=== PATIENT | male | born 1940 | race Caucasian/White ===

== ENCOUNTER 2018-12-10 09:27 | Inpatient (IN) | payer OTHER ==
[~2018-12-10] VITALS: Ht 170.2 cm; Wt 70.8 kg
[2018-12-10 09:28] VITALS: BP 96/58
[2018-12-10 09:51] LABS: HEMATOCRIT 28.6 % (42.0-52.0); HEMOGLOBIN 9.2 gm/dL (14.0-18.0); MCH 32.2 pg (26.0-34.0); MCHC 32.2 g/dL (28.0-37.0); MCV 100.1 fL (80.0-100.0); PLATELET COUNT 157 thou/uL (150-400); RBC 2.86 mil/uL (4.50-6.00); RDW 17.1 % (10.5-14.5); WBC 19.3 thou/uL (4.0-11.0)
[2018-12-10] MEDS ORDERED: ASPIR 8181 MG PO (09:54)
[2018-12-10] MEDS ORDERED: KEPPRA750 MG PO (09:55)
[2018-12-10] MEDS ORDERED: BUSPIRONE HCL10 MG PO (09:55)
[2018-12-10] MEDS ORDERED: TYLENOL325 MG PO (09:55)
[2018-12-10] MEDS ORDERED: MIRALAX17 GM PO (09:56)
[2018-12-10] MEDS ORDERED: OXYCODONE HCL 55 MG PO ×2 (09:56→13:17)
[2018-12-10] MEDS ORDERED: PRILOSEC 20 MG20 MG PO (09:56)
[2018-12-10] MEDS ORDERED: RISPERIDONE 00.25 M1 PO (09:57)
[2018-12-10] MEDS ORDERED: SENNA8.6 MG PO (09:57)
[2018-12-10] MEDS ORDERED: BACTRIM DS TAB1 EACH PO (09:58)
[2018-12-10] MEDS ORDERED: MAGOX 400400 MG PO (09:59)
[2018-12-10] MEDS ORDERED: DEPAKOTE ER250 MG PO (09:59)
[2018-12-10] MEDS ORDERED: DEXAMETHASONE0.5 MG PO (10:00)
[2018-12-10 10:04] LABS: CALCIUM 8.1 mg/dL (8.5-10.1); CREATININE 1.3 mg/dL (0.7-1.3); POTASSIUM 4.3 mmol/L (3.5-5.1)
[2018-12-10 10:14] LABS: ALBUMIN 2.7 g/dL (3.4-5.0); MAGNESIUM 2.1 mg/dL (1.8-2.4); TOTAL BILIRUBIN 0.8 mg/dL (<0.1-1.0); TOTAL PROTEIN 5.5 g/dL (6.4-8.2); TROPONIN-I 0.31 ng/mL (<0.06)
[2018-12-10 10:38] LABS: ABSOLUTE NEUTROPHILS 14.7 thou/uL (1.4-8.2)
[2018-12-10 10:39] LABS: METAMYELOCYTES 4 %; MYELOCYTES 32 %; PLATELET ESTIMATE NORMAL
[2018-12-10 10:40] LABS: ANISOCYTOSIS 1+; MACROCYTES 1+; POLYCHROMASIA 1+
[2018-12-10 12:10] LABS: URINE BILIRUBIN NEGATIVE (Negative); URINE BLOOD 2+ (Negative); URINE CLARITY CLEAR; URINE COLOR YELLOW; URINE GLUCOSE-RANDOM* TRACE (Negative); URINE KETONES NEGATIVE (Negative); URINE LEUKOCYTES-REFLEX NEGATIVE (Negative); URINE NITRITE-REFLEX NEGATIVE (Negative); URINE PROTEIN (DIPSTICK) 1+ (Negative); URINE SPECIFIC GRAVITY 1.015 (1.005-1.035); URINE UROBILINOGEN 0.2 E.U./dl (0.2-1.0)
[2018-12-10 12:23] LABS: CASTS None Seen /LPF (None Seen); HYALINE CASTS 0-3 Few /LPF (None Seen); SQUAMOUS 0-3 Few /LPF (0-3)
[2018-12-10 12:24] LABS: BACTERIA-REFLEX 1-9 Few /HPF (None Seen); CRYSTALS None Seen /LPF (None Seen); URINE RBC 3-10 Few /HPF (0-2); URINE WBC-REFLEX 0-5 Rare /HPF (0-5)
[2018-12-10 14:47] VITALS: BP 95/51
[2018-12-10 15:06] VITALS: BP 108/63
[2018-12-10 16:30] VITALS: BP 92/54
--- NOTE | 2018-12-10 16:58 | EKG ---
[address] [address] ELECTROCARDIOGRAM REPORT Name: IRVIN LIZ Room #: 357-P ADM IN M.R.#: [id number] ������������������ Admission: 12/10/18 ������������������ Attend Phys: Tommy Del Castillo MD Discharge: ������������������ Date of : 44 Report #: [id number] ����������������������������������������������������������������� [id number] THIS REPORT FOR: //name// [facility] ED Test Date: 2018-12-10 Test Time: 09:44:56 Pat Name: IRVIN LIZ Department: Room: 357 Gender: M Foreign Correspondent: KARLA : 1940 Requested By: Nathan Drummond Order Number: [id number] MD: Marty Pathak Measurements Intervals [place] Rate: 93 P: DE: QRS: 54 QRSD: 82 T: 243 QT: 387 QTc: 482 Interpretive Statements Atrial fibrillation Abnormal R-wave progression, early transition Borderline repolarization abnormality Borderline prolonged QT interval No previous ECG available for comparison Electronically Signed On 12-10-2018 16:58:28 CDT by Marty Pathak [email or web address] ��������������������������������������������� <ELECTRONICALLY SIGNED> ���������������������������������������� By: Marty Pathak MD, [facility] ��������������������������������������������� 12/10/18 1658 3 Marty Pathak MD, [facility] /EPI
--- NOTE | 2018-12-10 17:48 | NUR ---
PT ADMITED FROM ER. ADMISSION HX AND ASSESSMENT COMPLETED. VSS. DENIED HAVING PAIN OR DISCOMFORT. EVANS CATHETER AND COLOSTOMY BAG PATENT. PT ORIENTED TO THE ROOM AND THE CALL SYSTEM. ON SEIZURE PRECAUTIONS. WILL CONTINUE TO MONITOR.
[2018-12-10 18:10] LABS: URINE BILIRUBIN NEGATIVE (Negative); URINE BLOOD 2+ (Negative); URINE CLARITY CLEAR; URINE COLOR YELLOW; URINE GLUCOSE-RANDOM* NEGATIVE (Negative); URINE KETONES NEGATIVE (Negative); URINE NITRITE-REFLEX NEGATIVE (Negative); URINE PROTEIN (DIPSTICK) NEGATIVE (Negative); URINE SPECIFIC GRAVITY <= 1.005 (1.005-1.035); URINE UROBILINOGEN 0.2 E.U./dl (0.2-1.0)
[2018-12-10 18:12] LABS: URINE LEUKOCYTES-REFLEX 1+ (Negative)
[2018-12-10 18:28] LABS: SQUAMOUS 0-3 Few /LPF (0-3)
[2018-12-10 18:29] LABS: CASTS None Seen /LPF (None Seen)
[2018-12-10 18:30] LABS: BACTERIA-REFLEX 1-9 Few /HPF (None Seen); CRYSTALS None Seen /LPF (None Seen); URINE WBC-REFLEX 0-5 Rare /HPF (0-5)
[2018-12-10 19:15] VITALS: BP 101/47
[2018-12-11] VITALS: BP 106/59
[2018-12-11 00:07] LABS: GLYCOHEMOGLOBIN (HGB A1C) 5.4 % (4.8-5.6)
--- NOTE | 2018-12-11 03:28 | NUR ---
SLEPT MOST OF SHIFT. UPSET WHEN AWAKENED FOR CARES. REPOSITIONED EVERY 2-3 HOURS FOR COMFORT AND SKIN CARE. MAINTAIN SAFE ENVIRONMENT. PRORGRESSING TOWARDS GOALS FOR TRANSFER TO POSSIBLY TODAY PER PATIENTS CARE GIVERS REQUEST. CONTINUE TO ASSES. NO SEIZURES THIS SHIFT.
[2018-12-11 05:04] VITALS: BP 96/59
[2018-12-11 06:22] LABS: CHOLESTEROL 142 mg/dL (<200); HDL CHOLESTEROL 66 mg/dL (>40); LDL CHOLESTEROL 64 mg/dL (<100); TC:HDL 2.2 Ratio (Not establshd); TRIGLYCERIDE 64 mg/dL (<150); VLDL 13 mg/dL (<40)
[2018-12-11 06:23] LABS: SERUM ASSESSMENT Clear
[2018-12-11 07:52] VITALS: BP 105/63
[2018-12-11 08:23] LABS: HEMATOCRIT 21.9 % (42.0-52.0); HEMOGLOBIN 7.4 gm/dL (14.0-18.0); MCH 32.7 pg (26.0-34.0); MCHC 33.8 g/dL (28.0-37.0); MCV 96.7 fL (80.0-100.0); PLATELET COUNT 125 thou/uL (150-400); RBC 2.27 mil/uL (4.50-6.00); RDW 17.4 % (10.5-14.5)
[2018-12-11 08:28] LABS: CALCIUM 7.9 mg/dL (8.5-10.1); CREATININE 0.9 mg/dL (0.7-1.3); POTASSIUM 4.5 mmol/L (3.5-5.1)
--- NOTE | 2018-12-11 08:54 | EKG ---
[address] [place] [address] ELECTROCARDIOGRAM REPORT Name: IRVIN LIZ Room #: 357-P ADM IN M.R.#: [id number] ������������������ Admission: 12/10/18 ������������������ Attend Phys: Tommy Del Castillo MD Discharge: ������������������ Date of : 44 Report #: [id number] ����������������������������������������������������������������� [id number] THIS REPORT FOR: //name// [facility] Test Date: 2018-12-11 Test Time: 07:42:32 Pat Name: IRVIN LIZ Department: Room: 357 P Gender: M Drapery Maker: JENNIFER : 1940 Requested By: Radha Donnelly Order Number: [id number] MD: Marty Pathak Measurements Intervals [place] Rate: 77 P: ID: QRS: 53 QRSD: 83 T: QT: 446 QTc: 505 Interpretive Statements Atrial flutter with predominant 4:1 AV block Abnormal R-wave progression, early transition Nonspecific T abnormalities Prolonged QT interval Compared to ECG 12/10/2018 09:44:56 no significant change was found Electronically Signed On 12-11-2018 8:54:10 CDT by Marty Pathak [email or web address] ��������������������������������������������� <ELECTRONICALLY SIGNED> ���������������������������������������� By: Marty Pathak MD, [facility] ��������������������������������������������� 12/11/18 0854 0742 0742 Marty Pathak MD, [facility] /EPI
--- NOTE | 2018-12-11 09:40 | 2DMMODE ---
[facility] [address] [place] [address] 2 D/M-MODE ECHOCARDIOGRAM Name: IRVIN LIZ Room #: 357-P ADM IN M.R.#: [id number] ������������� Admission: 12/10/18 ������������� Attend Phys: Tommy Del Castillo, Discharge: ��� ������������� ��� Date of : 44 Date of Service: 12/11/18 0939 �� Report #: [id number] �������� ��������������������������������������������[id number] THIS REPORT FOR: //name// APPROVED REPORT Study performed: 12/11/2018 08:36:12 EXAM: Comprehensive 2D, Doppler, and color-flow Echocardiogram Patient Location: Bedside Room #: 357 Status: routine BSA: 1.82 HR: 78 bpm BP: 105/63 mmHg Rhythm: Atrial Fibrillation Other Information Study Quality: Fair/not all measurements taken. Technically limited study due to poor patient cooperation and positioning. Indications Atrial Fibrillation Elevated troponin. Hx: DM. 2D Dimensions IVSd: 11.59 (7-11mm) LVOT Diam: 18.90 (18-24mm) LVDd: 34.05 mm PWd: 11.10 (7-11mm) LVDs: 25.63 (25-40mm) Aortic Root: 36.55 mm Aortic Valve AoV Peak Qasim.: 1.49 m/s AO Peak Gr.: 8.85 mmHg LVOT Max P.19 mmHg LVOT Max V: 1.02 m/s ELVIS Vmax: 1.93 cm2 Mitral Valve MV Decel. Time: 101.22 ms MV E Max Qasim.: 1.00 m/s Pulmonary Valve PV Peak Qasim.: 0.90 m/s PV Peak Gr.: 3.21 mmHg [facility] [address] [address] 2 D/M-MODE ECHOCARDIOGRAM Name: IRVIN LIZ Room #: 357-P ADM IN M.R.#: [id number] ������������� Admission: 12/10/18 ������������� Attend Phys: Tommy Del Castillo, Discharge: ��� ������������� ��� Date of : 44 Date of Service: 12/11/18 0939 �� Report #: [id number] �������� ��������������������������������������������[id number] Tricuspid Valve TR Peak Qasim.: 2.78 m/s TR Peak Gr.: 31.00 mmHg Left Ventricle The left ventricle is normal size. There is normal LV segmental wall motion. Mild concentric left ventricular hypertrophy. Left ventricular systolic function is normal. LVEF is 60-65%. This study is not technically sufficient to allow evaluation of the LV diastolic function due to atrial fibrillation. Right Ventricle The right ventricle is normal size. The right ventricular systolic function is normal. Atria Left atrium is dilated. Right atrium is dilated. Aortic Valve Aortic valve is trileaflet, mildly calcified. Mild to moderate aortic regurgitation. There is no aortic valvular stenosis. Mitral Valve The mitral valve is normal in structure. There is no mitral valve regurgitation noted. No evidence of mitral valve stenosis. Tricuspid Valve The tricuspid valve is normal in structure. Moderate tricuspid regurgitation. Estimated PAP is 31mmHg plus the atrial pressure. Pulmonic Valve Pulmonic valve is not well visualized. Great Vessels The aortic root is normal in size. Ascending aorta is not well visualized. IVC is not well visualized. Pericardium There is no pericardial effusion. <Conclusion> Left ventricular systolic function is normal. There is normal LV segmental wall motion. LVEF 60-65%. Both atria are dilated. [facility] [address] [place] [address] 2 D/M-MODE ECHOCARDIOGRAM Name: SHALONDAIRVIN Room #: 357-P ADM IN M.R.#: [id number] ������������� Admission: 12/10/18 ������������� Attend Phys: Tommy Del Castillo, Discharge: ��� ������������� ��� Date of : 44 Date of Service: 12/11/1839 �� Report #: [id number] �������� ��������������������������������������������[id number] Aortic valve is trileaflet, mildly calcified. Mild to moderate aortic regurgitation. Mitral valve leaflets are structurally normal. No mitral valve regurgitation Moderate tricuspid regurgitation. Estimated pulmonary artery pressure of 31mmHg plus the atrial pressure. There is no pericardial effusion. ��������������������������������������������� <ELECTRONICALLY SIGNED> ���������������������������������������� By: Marty Pathak MD, [facility] ��������������������������������������������� 12/11/18 0939 0939 Marty Pathak MD, [facility] /INF
[2018-12-11 10:02] LABS: ABSOLUTE NEUTROPHILS 8.5 thou/uL (1.4-8.2); PLATELET ESTIMATE NORMAL
[2018-12-11 11:22] VITALS: BP 97/64
--- NOTE | 2018-12-11 14:22 | NUR ---
ASSESSMENT: CM REVIEWED CHART AND MET WITH PATIENT AT THE BEDSIDE. PT WAS ADMITTED FOR POSSIBLE SEIZURE AT [place]. 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 CM CONTACTED [facility] AND VERIFIED. PT NORMALLY USES A WALKER THERE FOR AMBULATION. PT HAS A S IRON WORKER NAMED ANDREY WHO HELPS ASSIST WITH TAKING HIM TO APPOINTMENTS AND RUNNING ERRANDS TO GET HIM THINGS HE NEEDS. PT HAS A BROTHER WHO LIVES IN [place]. CM DISCUSSED ROLE. PT PLANS ON RETURNING TO [facility] ONCE MEDICALLY STABLE. CM FAXED CLINICAL TO [facility]. CM WILL CONTINUE TO FOLLOW TO ASSIST NEEDED.
[2018-12-11 15:57] VITALS: BP 88/44
[2018-12-11 18:57] VITALS: BP 90/58
--- NOTE | 2018-12-11 19:13 | NUR ---
PATIENT DOES NOT SEEM TO BE IN PAIN AT THIS TIME. HE IS ALERT ORIENTED X4.COLOSTOMY IN PLACE. NEW EQUIPMENT PLACED THIS AM. NOTED TO HAVE BACTEREMIA AND STARTED ON ABT. Q2 TURNED. WILL CONT WITH PLAN OF CARE.
[2018-12-12] VITALS (7 sets, daily range): BP systolic 97–121; BP diastolic 64–80
--- NOTE | 2018-12-12 03:39 | NUR ---
SLEPT PART OF SHIFT. WORKING ON GOALS AND PLAN OF CARE FOR NOC. MAINTAIN SAFE ENVIRONEMENT. ASSIST TO TURN EVERY 2-3 HOURS FOR COMFORT. PROGRESSING SLOWLY TOWARDS POSSIBLE TRANSFER TO TODAY. CAREGIVER LAST EVENING AND QUESTIONS ANSWERED. CONTINUE TO ASSES CLOSELY.
[2018-12-12 06:45] LABS: ABSOLUTE RETIC COUNT 0.1276 10^6/uL; OBSERVED RETIC COUNT 5.84 % (0.6-2.6)
[2018-12-12 06:51] LABS: % SATURATION 21 % (20-39); IRON 63 ug/dL (65-175); TIBC 300 ug/dL (250-450)
[2018-12-12 07:07] LABS: FOLIC ACID 8.6 ng/mL (8.6-58.9)
--- NOTE | 2018-12-12 15:45 | NUR ---
ON-GOING ASSESSMENT: CM REVIEWED CHART AND MET WITH PATIENT. PT IS SLOWLY PROGRESSING TOWARDS DISCHARGE GOALS. CM UPDATED RAUL ALLRED THAT PATIENT MAY DISCHARGE TOMORROW. CM ALSO SPOKE WITH ANDREY PATIENTS CAREGIVER TO NOTIFY HER. PTS BROTHER LIVES IN [place].
--- NOTE | 2018-12-12 18:25 | NUR ---
PATIENT WAS ASSISTED TO RECLINER JUST AFTER BREAKFAST. POST TRANSFER HE WAS VERY SHORT OF BREATH AND HAD A HR OF 150. ONCE HE WAS RESTED IN CHAIR VITALS RETURNED TO NORMAL. HE HAS NOT VOICED COMPLAIN OF PAIN AT THIS TIME. RESPIRATIONS ARE NON LABORED AT THIS TIME. WILL CONT WITH PLAN OF CARE.
[2018-12-13 04:09] VITALS: BP 112/71
--- NOTE | 2018-12-13 06:01 | NUR ---
SLEPT PART OF SHIFT. WHEN AWAKENS HAS TROUBLE GETTING COMFORTABLE. ASSIST TO REPOSITION PRN. WORKING ON GOALS AND PLAN OF CARE FOR NOC. PROGRESSING TOWARDS DISCHARGE GOALS. MAINTAIN SAFE ENVIRONMENT. REMAINS ORIENTED X4 AT THIS TIME. CONTINUE TO ASSES.
[2018-12-13 06:04] LABS: MCH 33.1 pg (26.0-34.0); MCV 97.1 fL (80.0-100.0); RBC 2.03 mil/uL (4.50-6.00); RDW 17.3 % (10.5-14.5); WBC 7.7 thou/uL (4.0-11.0)
[2018-12-13 06:17] LABS: HEMATOCRIT 19.7 % (42.0-52.0); HEMOGLOBIN 6.7 gm/dL (14.0-18.0)
[2018-12-13 06:23] LABS: ALBUMIN 2.2 g/dL (3.4-5.0); CALCIUM 7.8 mg/dL (8.5-10.1); CREATININE 0.8 mg/dL (0.7-1.3); MAGNESIUM 2.2 mg/dL (1.8-2.4); POTASSIUM 4.2 mmol/L (3.5-5.1); TOTAL BILIRUBIN 0.7 mg/dL (<0.1-1.0); TOTAL PROTEIN 4.1 g/dL (6.4-8.2)
[2018-12-13 07:09] VITALS: BP 124/80
--- NOTE | 2018-12-13 09:08 | HC ---
[facility] [place] [address] CONSULTATION Name: IRVIN LIZ Room #: 357-P ADM IN M.R.#: [id number] Admission: 12/10/18 ������������������ Attend Phys: Tommy Del Castillo MD Discharge: ������������������ Date of : 42 Report #: [id number] THIS REPORT FOR: //name// CC: Tommy [facility] DATE OF SERVICE: 12/12/2018 INFECTIOUS DISEASE CONSULTATION: ATTENDING PHYSICIAN: Dr. Tommy Del Castillo. REASON FOR CONSULTATION: Gram-positive cocci in blood culture. HISTORY OF PRESENT ILLNESS: A 78-year-old white man admitted through the Emergency Room after having collapsed in the bathroom and having a hematoma, left gluteal region. His workup included a couple of blood cultures, 1 out of 2 revealed Gram-positive cocci. I tried to explain to the patient, difference between positive blood culture and false positive blood culture, but I believe my attempts are falling into deaf ears. The patient mainly complaining of feeling weak and lightheaded and note is made that his blood pressure had been low. Nursing will be checking for postural hypotension. The patient on a large dose of dexamethasone and will contact oncologist to see if dose can be decreased since this is not what he was using at home before. PAST MEDICAL HISTORY: Multiple myeloma, on treatment at [facility]. History of seizure disorder, on a couple of seizure medication. Postural hypotension. Evidence of multiple previous cerebrovascular accidents with underlying cognitive impairment, question dementia. Evidence by chest x-ray to have a large hiatal hernia, which is impinging into the heart that is displaced to the right. Cardiomegaly with significant tracheal impingement. Hypotension. DRUG ALLERGIES: None listed. MEDICATIONS: The patient is on treatment with vancomycin, which will proceed to stop at present time. He is also on normal saline at 1000 mL IV every 12 hours, risperidone 0.25 mg p.o. daily, buspirone 10 mg p.o. daily, aspirin 81 mg p.o. daily, pantoprazole 20 mg p.o. daily, dexamethasone 6 mg p.o. every 6 hours, valproic 250 mg p.o. b.i.d., magnesium oxide 500 mg p.o. b.i.d., sennoside 25.8 mg at bedtime, levetiracetam 750 p.o. b.i.d., polyethylene glycol 17 grams p.o. b.i.d., insulin lispro per sliding scale, p.r.n. glucose, p.r.n. glucagon, p.r.n. ondansetron, p.r.n. morphine sulfate. Vancomycin 1250 mg IV every 12 hours, which I discontinued today. REVIEW OF SYSTEMS: Unable to obtain, the patient mainly complaining of lightheadedness and was in bed for almost [address] [address] CONSULTATION Name: IRVIN LIZ Room #: 357-P ADM IN M.R.#: [id number] Admission: 12/10/18 ������������������ Attend Phys: Tommy Del Castillo MD Discharge: ������������������ Date of : 42 Report #: [id number] PHYSICAL EXAMINATION: GENERAL: Chronically ill-appearing white man. VITAL SIGNS: Temperature maximum since admission 99.7, pulse 85, respirations 18, BP 120/69. Note is made his blood pressure goes down as low as 88/44. Height 5 feet 7 inches, weight 156 pounds. 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 The left pupil reacted. Mouth: No thrush. No hairy leukoplakia. NECK: Supple. LUNGS: Clear. HEART: S1, S2. No gallop or murmur. ABDOMEN: Soft, no masses or megaly. GENITALIA AND RECTAL: Deferred. EXTREMITIES: No clubbing, cyanosis. NEUROLOGIC: Grossly within normal limits. LABORATORY DATA: Sodium 134, potassium 4.5, BUN 25, creatinine 0.9, glucose 112, mild elevation of SGOT of 57 U/L, hypoalbuminemia of 2.7 g/dL detected. Lactic acid was elevated at 15.5 millimoles per liter on admission, goes down to 2.2 millimoles per liter yesterday. I wonder if related to postictal status. Lipids are within range. White blood cell count on admission 19,300, hemoglobin 9.2 g/dL and platelets 157,000 with differential showing 75% segmented neutrophils, 16% lymphocytes. Repeat CBC yesterday revealed a white blood cell count of 10,000, hemoglobin has dropped to 7.4 g/dL and platelets dropped to 125,000. The white blood cell count differential revealed 79% segmented neutrophils and 12% bands. Hemoglobin A1c 5.4% with an estimated average sugars of 108. Urinalysis revealed 2+ blood, 0-3 squamous epithelial cells per low power field, 0-5 wbc's per high power field, 11-20 rbc's per high power field. MICROBIOLOGY DATA: Urine culture pending. Blood cultures 1 out of 2 samples on 12/10/2018 at 9:37 a.m. revealed Gram-positive cocci. The second set of blood cultures obtained at 9:35 a.m. remains negative so far. RADIOLOGY EVALUATION: Chest x-ray revealed cardiomegaly, large hiatal hernia on the retrocardiac area. Chronic changes. Impingement of the main trachea. CT of the head revealed chronic microvascular changes and previous evidence of lacunar infarcts. No acute changes. CT scan of the abdomen and pelvis revealed hematoma in the left gluteal region. Subcutaneous edema of the pelvis and upper thighs bilateral. Small to moderate bilateral pleural effusion and bibasilar pulmonary atelectasis. Large hiatal hernia. Bilateral scrotal hydroceles. ASSESSMENT: 1. Suspect contaminated blood culture. 2. Mild leukocytosis, which subsequently developed mainly left shift bandemia, possibly secondary to seizure. 3. Lactic acidosis secondary to above. [facility] [address] [place] [address] CONSULTATION Name: IRVIN LIZ Room #: 357-P ADM IN M.R.#: [id number] Admission: 12/10/18 ������������������ Attend Phys: Tommy Del Castillo MD Discharge: ������������������ Date of : 42 Report #: [id number] 4. History of multiple myeloma, on Decadron. 5. Evidence of multiple cerebrovascular accidents as lacunar strokes. 6. Large hiatal hernia into the chest. 7. Hypotension. SUGGESTIONS: Recommend, for the time being discontinue vancomycin. Continue to carefully observe the patient. May consider discontinuation of large dose dexamethasone and put him back on his usual dose. Monitor laboratory parameters. The patient could surely be discharged to his place and continue to be followed at [facility]. Dr. Navarrete, thank you for requesting my suggestions in the care of your patient. ��������������������������������������������� <ELECTRONICALLY SIGNED> ���������������������������������������� By: Robert Barrow MD ��������������������������������������������� 12/13/18 0908 1056 0324 Robert Barrow MD /nt
[2018-12-13 11:10] VITALS: BP 98/65
--- NOTE | 2018-12-13 13:48 | NUR ---
DISCHARGE NOTE: SW reviewed chart and spoke with nursing and attending physician. Pt is medically stable for discharge back to [facility] today. telecommunications network planner coordianted and notified family. No additional SW needs identified at this time, but is available to assist should needs arise.
--- NOTE | 2018-12-13 14:47 | NUR ---
DISCHARGE ORDERS RECEIVED. PATIENT DISCHARING TO [facility] LONG[facility]TERM UNIT. CHART COPIED PER WILDLIFE OFFICER. ORDERS FAXED TO [facility] ADMISSIONS, VERIFIED RECEIVED. [facility] TO TRANSPORT PATIENT 18-1830 HOURS. NICOLASA, SUPERVISOR [employer] NOTIFIED OF DISCHARGE PLAN AND TIME OF TRANSPORT. UNIT RN NOTIFIED AND CONTACT NUMBER FOR REPORT PROVIDED. UNIT CM/SW AWARE.
[2018-12-13 16:00] VITALS: BP 100/69
--- NOTE | 2018-12-13 16:38 | NUR ---
Assumed care of pt at 0700. aox4 no acute distress. voicing no concerns. remains weak. anticipate d/c to [facility] at 1800. no seizure activity noted. pt progressing toward poc goals.
--- NOTE | 2018-12-14 22:26 | HC ---
[facility] [address] [address] CONSULTATION Name: IRVIN LIZ Room #: 357-P [facility] IN M.R.#: [id number] Admission: 12/10/18 ������������������ Attend Phys: Tommy Del Castillo MD Discharge: 12/13/18 ������������������ Date of : 44 Report #: [id number] THIS REPORT FOR: //name// CC: Tommy Vil[facility]ash [facility] DATE OF SERVICE: 12/10/2018 HISTORY OF PRESENT ILLNESS: This is a 78-year-old male patient who is unable to provide any reliable history. He is feeling cold and he did not want to be examined and did not give much history. Subsequently, I was able to reach the patient's brother and he provided history. This patient apparently has mental disability, but he was able to function independently. He had seizures since childhood. He was initially on Dilantin, but subsequently Tegretol was added. He took both medications for long time. He usually goes to [facility]. His seizures were controlled for long time. They switched him to Keppra. He has not had any reoccurrence of his seizures for a long time. Today, he had an episode, which was more like syncope while sitting on the toilet. The brother has talked to the [place] [facility] and it was not the episode of his typical seizure. Review of systems is positive for multiple things. He has been diagnosed with multiple myeloma. He has history of atrial fibrillation. He had a fall and have a large hematoma in the gluteal region and his anticoagulation is on hold. He also has some problem with troponin. His chest x-ray demonstrated large hiatus hernia, which is displacing his heart towards the right side. REVIEW OF SYSTEMS: I carried out 14-point review of systems as much as I can from the records and talking to the patient and the patient's brother. The patient does not provide much history. He is complaining of some pain in the leg area, but he can move all of them. I did ask him about any eye, ENT, cardiac or respiratory symptoms and he denies that. He does not have any constitutional, dermatological, psychiatric or throat symptom, but he has a large hematoma. PAST MEDICAL HISTORY: Positive for seizure and the patient does have problem with what looks like mental disability from the brother. FAMILY HISTORY: Unremarkable. 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 SOCIAL HISTORY: Otherwise unremarkable. [facility] [address] [place] [address] CONSULTATION Name: IRVIN LIZ Room #: 357-P [facility] IN M.R.#: [id number] Admission: 12/10/18 ������������������ Attend Phys: Tommy Del Castillo MD Discharge: 12/13/18 ������������������ Date of : 44 Report #: [id number] PHYSICAL EXAMINATION: Was attempted, but this patient was not able to cooperate. He wakes up some. He does have speech, but he cannot tell me what month or what day it is. He does appear to have nystagmus. I do not know how much is old and how much is new. He moves all 4 extremities, but is unable to cooperate with reflex checking or the tone checking. He said he can feel. I could not look at the patient's fundus. Cardiac examinations does appear to be showing irregular heart. He does not appear to have much respiratory difficulty. His last blood pressure was 92/54, respiration is 18, pulse is 78, and temperature is 97.8. LABORATORY DATA: Indicates a white count of 19.3. He did have a CT scan of the head, which showed no acute changes, but chronic changes. IMPRESSION: This patient had an episode, which may be seizure. It is difficult to tell if it was syncope or seizure and if was seizure, whether it was primary seizure or it occurred because of hypertension or some other systemic etiology. I discussed that aspect with the brother and to some extent with the patient. My plan is to get an EEG done and change the medications only if seizure can be documented. His general condition is quite poor and I am not sure we should be very aggressive and let the [facility] people handle his medication or any change in the medications after he is dismissed. ��������������������������������������������� <ELECTRONICALLY SIGNED> ���������������������������������������� By: Richar Higuera MD ��������������������������������������������� 12/14/182225 10 57 Richar Higuera MD /nt
--- NOTE | 2018-12-14 22:27 | EEG ---
[facility] [place] [address] ELECTROENCEPHALOGRAM Name: IRVIN LIZ Room #: 357-P [facility] IN M.R.#: [id number] ������������������ Admission: 12/10/18 ������������������ Attend Phys: Tommy Del Castillo MD Discharge: 12/13/18 ������������������ Date of : 44 Report #: [id number] ����������������������������������������������������������������� [id number] THIS REPORT FOR: //name// CC: Tommy Del Castillo [facility] DATE OF SERVICE: 12/11/2018 This patient is being evaluated for the possibility of seizure. EEG was done by placing the electrode by standard 10-20 system of electrode placement. Both referential and sequential montages were used for recording. Background activity in this patient's EEG is about 8 Hz and 30 microvolt. Photic stimulation is unremarkable. The patient did not go to sleep, but may be drowsy at one time when there was slight slowing on both sides. Throughout the record, no active epileptiform activity was noticed. IMPRESSION: Suboptimal electroencephalogram because the patient's electroencephalogram is masked by artifact. No active epileptiform activity was noticed. Thank you very much for this referral. ���������������������������������������� <ELECTRONICALLY SIGNED> ���������������������������������������� By: Richar Higuera MD ��������������������������������������������� 12/14/18 2227 18 2248 Richar Higuera MD /nt
== END 2018-12-13 19:01 | DRG 100 ==
LOC: ER 09:27 → EROBS 12:10 → 3W 12:10
PROVIDERS: Emergency Medicine; Nurse Practitioner; Nurse Practitioner Family; ADMIT Internal Medicine
DX: G40.909 Epilepsy, unspecified, not intractable, without status epilepticus (principal); E43 Unspecified severe protein-calorie malnutrition; C90.01 Multiple myeloma in remission; I48.1 Persistent atrial fibrillation; N17.9 Acute kidney failure, unspecified; E46 Unspecified protein-calorie malnutrition; Z66 Do not resuscitate; R26.81 Unsteadiness on feet; H54.8 Legal blindness, as defined in USA; F03.90 Unspecified dementia, unspecified severity, without behavioral disturbance, psychotic disturbance, mood disturbance, and anxiety; I95.9 Hypotension, unspecified; K44.9 Diaphragmatic hernia without obstruction or gangrene; I25.10 Atherosclerotic heart disease of native coronary artery without angina pectoris; I49.5 Sick sinus syndrome; E11.9 Type 2 diabetes mellitus without complications; D64.9 Anemia, unspecified; R29.6 Repeated falls; I25.2 Old myocardial infarction; Z79.52 Long term (current) use of systemic steroids; Z79.82 Long term (current) use of aspirin; Z79.899 Other long term (current) drug therapy; Z92.21 Personal history of antineoplastic chemotherapy; Z68.24 Body mass index [BMI] 24.0-24.9, adult; Z86.73 Personal history of transient ischemic attack (TIA), and cerebral infarction without residual deficits
CPT/HCPCS: 10879

== ENCOUNTER 2018-12-14 09:39 | Inpatient (IN) | payer OTHER ==
[~2018-12-14] VITALS: Ht 175.3 cm; Wt 74.8 kg
[~2018-12-14 09:39] MED LIST: ASPIR 8181 MG PO; BACTRIM DS TAB1 EACH PO; BUSPIRONE HCL10 MG PO; DEPAKOTE ER250 MG PO; DEXAMETHASONE0.5 MG PO; KEPPRA750 MG PO; MAGOX 400400 MG PO; MIRALAX17 GM PO; OXYCODONE HCL 55 MG PO; PRILOSEC 20 MG20 MG PO; RISPERIDONE 00.25 M1 PO; SENNA8.6 MG PO; TYLENOL325 MG PO
--- NOTE | 2018-12-14 11:04 | EKG ---
[facility] [address] [place] [address] ELECTROCARDIOGRAM REPORT Name: IRVIN LIZ Room #: REG Sunitha#: [id number] ������������������ Admission: 12/14/18 ������������������ Attend Phys: Discharge: ������������������ Date of : 42 Report #: [id number] ����������������������������������������������������������������� [id number] THIS REPORT FOR: //name// [facility] ED Test Date: 2018-12-14 Test Time: 10:41:47 Pat Name: IRVIN LIZ Department: Room: Gender: M [place] Roofer: [facility] : 1940 Requested By: Teddy Pruett Order Number: [id number] MD: Marty Pathak Measurements Intervals [place] Rate: 85 P: [place]: QRS: 45 QRSD: 101 T: 52 QT: 359 QTc: 427 Interpretive Statements Atrial fibrillation Abnormal R-wave progression, early transition Compared to ECG 12/11/2018 07:42:32 No significant change was found Electronically Signed On 12-14-2018 11:04:23 CDT by Marty Pathak [email or web address] ��������������������������������������������� <ELECTRONICALLY SIGNED> ���������������������������������������� By: Marty Pathak MD, [facility] ��������������������������������������������� 12/14/18 1104 1041 1041 Marty Pathak MD, [facility] /EPI
[2018-12-14 11:27] LABS: HEMOGLOBIN 7.8 gm/dL (14.0-18.0); MCH 32.3 pg (26.0-34.0); MCHC 32.6 g/dL (28.0-37.0); MCV 99.2 fL (80.0-100.0)
[2018-12-14 11:29] LABS: HEMATOCRIT 23.9 % (42.0-52.0); PLATELET COUNT 172 thou/uL (150-400); RBC 2.41 mil/uL (4.50-6.00); RDW 17.6 % (10.5-14.5); WBC 14.2 thou/uL (4.0-11.0)
[2018-12-14 11:35] LABS: CALCIUM 7.7 mg/dL (8.5-10.1); CREATININE 0.9 mg/dL (0.7-1.3)
[2018-12-14 11:45] LABS: ALBUMIN 2.6 g/dL (3.4-5.0); MAGNESIUM 1.9 mg/dL (1.8-2.4); TOTAL PROTEIN 4.9 g/dL (6.4-8.2); TROPONIN-I 0.33 ng/mL (<0.06)
[2018-12-14 11:56] LABS: ABSOLUTE NEUTROPHILS 12.4 thou/uL (1.4-8.2); METAMYELOCYTES 2 %; NUCLEATED RBCS 1 /100WBC
[2018-12-14 11:58] LABS: ANISOCYTOSIS 2+; POLYCHROMASIA SLIGHT
[2018-12-14 11:59] LABS: POIKILOCYTOSIS SLIGHT
[2018-12-14 12:36] LABS: URINE BILIRUBIN NEGATIVE (Negative); URINE BLOOD 2+ (Negative); URINE CLARITY CLEAR; URINE COLOR YELLOW; URINE GLUCOSE-RANDOM* NEGATIVE (Negative); URINE KETONES NEGATIVE (Negative); URINE LEUKOCYTES-REFLEX TRACE (Negative); URINE NITRITE-REFLEX NEGATIVE (Negative); URINE PROTEIN (DIPSTICK) 1+ (Negative); URINE SPECIFIC GRAVITY 1.025 (1.005-1.035); URINE UROBILINOGEN 0.2 E.U./dl (0.2-1.0)
[2018-12-14 12:42] LABS: CASTS None Seen /LPF (None Seen); CRYSTALS None Seen /LPF (None Seen); SQUAMOUS 0-3 Few /LPF (0-3); TRANSITIONAL EPITHEL CELL 0-3 Few /LPF (None Seen); URINE RBC 3-10 Few /HPF (0-2); URINE WBC-REFLEX 0-5 Rare /HPF (0-5)
[2018-12-14 12:43] LABS: BACTERIA-REFLEX None Seen /HPF (None Seen); MUCUS 0-3 Light strn/LPF (None Seen)
[2018-12-14 14:43] VITALS: BP 117/63
--- NOTE | 2018-12-14 16:32 | NUR ---
VASCULAR ACCESS CONSULTED FOR MIDLINE, PT HAS BEEN STUCK NUMEROUS TIMES FOR PIV. DISCUSSED BENEFITS AND RISKS WITH PT, VERBALIZED UNDERSTANDING AND GAVE VERBAL CONSENT. PT WAS PREPPED AND DRAPED FOR MAX BARRIER PRECAUTIONS. ERIN BASILIC WAS WIDELY PATENT WITH USG, 1% LIDOCAINE GIVEN SQ. 4FR POWER MIDLINE TRIMMED TO 14CM INSERTED TO 0CM WITH BRISK BLOOD RETURN. ML SECURED AND RELEASED FOR IMMEDIATE USE PER PROTOCOL.
[2018-12-14 17:45] VITALS: BP 102/69
--- NOTE | 2018-12-14 19:03 | NUR ---
[age] YEAR OLD MALE ADMITTED TO UNDER THE CARE OF FIONA. PT WAS BROUGHT INTO THE ER PER [facility]ST FROM [facility], DUE TO ABD PAIN/SOA AND WEAKNESS. PT IS ALERT AND ORIENTED TIMES FOUR. VSS, 95%2L, IVF INFUSING PER ORDER. PT DENIES PAIN/SOA/N/V DURING ADMISSION ASSESSMENT. WILL CONTINUE TO MONITOR.
[2018-12-14 20:15] VITALS: BP 101/67
[2018-12-14 23:59] VITALS: BP 103/62
[2018-12-15 04:05] VITALS: BP 126/76
[2018-12-15 04:05] LABS: ALBUMIN 2.1 g/dL (3.4-5.0); CALCIUM 6.6 mg/dL (8.5-10.1); CREATININE 0.6 mg/dL (0.7-1.3); POTASSIUM 4.2 mmol/L (3.5-5.1); TOTAL BILIRUBIN 0.8 mg/dL (<0.1-1.0); TOTAL PROTEIN 4.1 g/dL (6.4-8.2)
--- NOTE | 2018-12-15 04:14 | NUR ---
Pt new admit as of yesterday. Pt AO x4. Vitals stable. Incontinent of urine. Colostomy bag patent with loose stool. Pt. expresses concern of being overly tired lately. reports soreness on his bottom due to fall at snf. Large bruise on the left hip and coccyx. photograph taken. pt denies abd pain or chest pain. Will continue to follow POC.
[2018-12-15 07:30] VITALS: BP 124/66
--- NOTE | 2018-12-15 10:04 | NUR ---
AWAKE BUT SLEEPY. C/O FATIGUE. AFIB PER TELE. BG WNL. REMARKABLE BRUISING LEFT HIP. TROPONINS NOTED. COLOSTOMY INTACT. FREQUENT CHECKS; WILL CONTINUE TO MONITOR.
[2018-12-15 15:20] VITALS: BP 103/63
--- NOTE | 2018-12-15 15:28 | NUR ---
ASSUMED CARE OF PT AT 13:45. PT C/O STIFFNESS AND PAIN, PAIN MEDS GIVEN ORDERED. CAREGIVER AT BEDSIDE. PT IN STABLE CONDITION. NO OTHER CHANGE IN STATUS. WILL CONTINUE TO MONITOR UNTIL EOS.
[2018-12-15 19:40] VITALS: BP 110/65
--- NOTE | 2018-12-16 01:14 | NUR ---
ASSUMED PT CARE 1899. PT ALERT AND ORIENTED. NEGAR MIDLINE DRESSING C/D/I. REASSESSMENT COMPLETE. VSS. PT REPORTS RESTLESS LEGS AND PAIN, REFUSES PAIN MEDICATION. DENIES N/V. CALL LIGHT WITHIN REACH. WILL CONTINUE POC UNTIL EOS.
[2018-12-16 04:00] VITALS: BP 129/83
[2018-12-16 05:49] LABS: CALCIUM 6.5 mg/dL (8.5-10.1); CREATININE 0.5 mg/dL (0.7-1.3); MAGNESIUM 1.9 mg/dL (1.8-2.4); POTASSIUM 3.9 mmol/L (3.5-5.1); TOTAL BILIRUBIN 0.5 mg/dL (<0.1-1.0); TOTAL PROTEIN 4.2 g/dL (6.4-8.2)
[2018-12-16 08:00] VITALS: BP 131/90
--- NOTE | 2018-12-16 08:48 | NUR ---
PT A&OX4, CONFUSED AT TIMES. MIDLINE INTACT IN L UA INFUSING FLUIDS W/O COMPS. O2 @ 2L PER NC. REFUSING TURNS AT THIS TIME. COLOSTOMY INTACT, INCONT. OF BLADDER. TOLERATING PO WELL. WILL CONT POC.
[2018-12-16 11:50] VITALS: BP 144/113
[2018-12-16 12:38] LABS: BE(vivo) -16.8 mmol/L (-2 to +3); HCO3 11.7 mmol/L (22.0-26.0); PCO2 VENOUS 38.5 mmHg (41.0-51.0); PO2 VENOUS 25.3 mmHg (35.0-45.0)
[2018-12-16 14:17] LABS: HEMATOCRIT 24.9 % (42.0-52.0); HEMOGLOBIN 7.7 gm/dL (14.0-18.0); MCH 31.8 pg (26.0-34.0); MCHC 31.1 g/dL (28.0-37.0); MCV 102.3 fL (80.0-100.0); RBC 2.43 mil/uL (4.50-6.00); RDW 19.1 % (10.5-14.5); WBC 13.2 thou/uL (4.0-11.0)
[2018-12-16 14:19] LABS: CALCIUM 6.6 mg/dL (8.5-10.1); CREATININE 0.9 mg/dL (0.7-1.3); POTASSIUM 3.8 mmol/L (3.5-5.1)
--- NOTE | 2018-12-16 14:53 | NUR ---
RISK MODELER activated-see flowsheet
[2018-12-16 15:00] LABS: BE(vivo) -5.3 mmol/L (-2 to +3); HCO3 18.5 mmol/L (22.0-26.0); PCO2 29.4 mmHg (35.0-45.0); PO2 269.6 mmHg (80.0-100.0); pH 7.417 (7.360-7.450); sO2 99.6 % (92.0-98.0)
[2018-12-16 15:20] VITALS: BP 136/90
--- NOTE | 2018-12-16 19:24 | NUR ---
PT WAS TRANSFERED BY W/C TO RADIOLOGY THIS AM FOR US OF THE ABD, WHEN RETURNED PT WAS PALE, SOA INCREASING. [facility]APID RESPONSE WAS CALLED. DR. JAIMES NOTIFIED AND WAS ALREADY PRESENT. PT IS A NO CODE.STEVEN MARTINEZ WAS NOTIFIED. PT SINCE HAS RECOVERED. PT RESTING COMFORTLY, COLOR LESS PALE, AND NOW ON NC AT 3 LITERS FROM A NRB MASK. EVANS WAS PLACED FOR ACCURATE I/O. WILL CONT POC.
[2018-12-16 19:33] VITALS: BP 104/70
[2018-12-17] VITALS (7 sets, daily range): BP systolic 98–126; BP diastolic 63–88
[2018-12-17 03:53] LABS: ALBUMIN 2.2 g/dL (3.4-5.0); CALCIUM 6.1 mg/dL (8.5-10.1); CREATININE 0.7 mg/dL (0.7-1.3); TOTAL BILIRUBIN 0.7 mg/dL (<0.1-1.0); TOTAL PROTEIN 4.1 g/dL (6.4-8.2)
[2018-12-17 04:04] LABS: MCH 33.4 pg (26.0-34.0); MCHC 33.9 g/dL (28.0-37.0); MCV 98.6 fL (80.0-100.0); RBC 1.84 mil/uL (4.50-6.00); RDW 18.4 % (10.5-14.5); WBC 8.4 thou/uL (4.0-11.0)
[2018-12-17 04:07] LABS: HEMATOCRIT 18.1 % (42.0-52.0); HEMOGLOBIN 6.1 gm/dL (14.0-18.0)
[2018-12-17 04:48] LABS: MCHC 33.6 g/dL (28.0-37.0); MCV 98.4 fL (80.0-100.0); RBC 1.87 mil/uL (4.50-6.00); RDW 18.6 % (10.5-14.5); WBC 8.7 thou/uL (4.0-11.0)
[2018-12-17 04:57] LABS: HEMOGLOBIN 6.2 gm/dL (14.0-18.0)
[2018-12-17 04:58] LABS: HEMATOCRIT 18.4 % (42.0-52.0)
--- NOTE | 2018-12-17 07:00 | HC ---
[facility] [place] [address] CONSULTATION Name: IRVIN LIZ Room #: 206-P ADM IN M.R.#: [id number] Admission: 12/14/18 ������������������ Attend Phys: Matteo Alonzo Discharge: ������������������ Date of : 42 Report #: [id number] THIS REPORT FOR: //name// CC: Matteo Prado PULMONARY CONSULTATION REFERRING PHYSICIAN: Matteo Alonzo M.D. REASON FOR REFERRAL: Acute hypoxia. HISTORY OF PRESENT ILLNESS: The patient is a 78-year-old white male with progressive hypoxia. A Pulmonary consultation was requested. The patient was most recently hospitalized on 12/10/2018 following a syncopal episode. He was felt to have seizure disorder. The patient then presents on 12/14/2018 with acute onset of abdominal pain that started 2-3 days prior to presentation. It is located in the mid abdominal area. The patient was felt to have pancreatitis. Lipase was elevated. Today, while undergoing imaging study of his abdomen, he began to complain of dyspnea, and he was found to be hypoxic. A CT chest angiogram was performed along with CT abdomen and pelvis. He is currently on nonrebreather. He was complaining of abdominal pain. Of note, the patient had been on Eliquis and aspirin. Eliquis was recently discontinued due to fall. PAST MEDICAL HISTORY: Notable for multiple myeloma, currently undergoing treatment at [facility]. He has been given Decadron. He has a history of epilepsy, temporal lobe, since childhood; history of compression fracture of the spine; atrial flutter and also on Depakote for mood stabilizer. ALLERGIES: None to medications. CURRENT MEDICATIONS: Include aspirin, Depakote ER 250 mg p.o. b.i.d., Decadron 6 mg p.o. q. 6 hours, Glucagon, hydrocodone 5 mg p.r.n., insulin supplements, Keppra 750 mg p.o. b.i.d., mag oxide 500 mg p.o. b.i.d., morphine 4 mg p.r.n. and zolpidem. FAMILY HISTORY: Noncontributory. SOCIAL HISTORY: Nonsmoker, nondrinker. [facility] [address] [place] [address] CONSULTATION Name: IRVIN LIZ Room #: 206-P [facility] IN M.R.#: [id number] Admission: 12/14/18 ������������������ Attend Phys: Matteo Alonzo Discharge: ������������������ Date of : 42 Report #: [id number] REVIEW OF SYSTEMS: Deferred as the patient is in moderate distress. PHYSICAL EXAMINATION: GENERAL: He is awake, alert, in moderate distress. He is complaining of abdominal pain. He appears tachypneic. VITAL SIGNS: Temperature is 97 degrees Fahrenheit, pulse is 150, respiratory rate is 22, blood pressure 144/110 mmHg and saturation 92% on nonrebreather. HEENT: Normocephalic, atraumatic. NECK: Supple, without lymphadenopathy or thyromegaly. CHEST: Breath sounds are fair due to poor effort. CARDIOVASCULAR: Normal S1, S2. There are no obvious murmurs or gallops. ABDOMEN: Soft. Tender in the mid abdominal area. He has a colostomy in the left mid quadrant. GENITOURINARY: Deferred. RECTAL: Deferred. EXTREMITIES: No edema, cyanosis or clubbing. LABORATORY DATA: Troponin 0.11. EKG shows atrial fibrillation, poor R-wave progression. Abdominal ultrasound, difficult study due to motion. Bowel gas patterns are noted. Otherwise, no significant findings. CT abdomen and pelvis and CT chest angiogram pending. Lactic acid 1.8. Sodium 138, potassium 3.9, chloride 108, CO2 is 23, BUN is 23 and creatinine 0.5. Liver enzymes are grossly unremarkable. WBC on 12/14/2018 was 14,200, hemoglobin 7.8. Albumin 2.2. IMPRESSION: 1. Acute hypoxic respiratory failure in this 78-year-old white male. He was admitted with mid abdominal pain, felt to have pancreatitis. Chest x-ray is pending. CT chest angiogram is pending. With the onset of abdominal pain and presumed pancreatitis, suspect systemic inflammatory response syndrome as a cause for his hypoxia. Pulmonary embolus is considered. Pneumonia is also considered. 2. Abdominal pain, presumed pancreatitis. I would recommend consulting GI. 3. Elevated troponin, abnormal EKG, ? Cardiology consult. 4. Multiple myeloma, currently on Decadron, has been followed by at [facility]. 5. History of epilepsy, temporal, childhood history. 6. Atrial flutter, Eliquis was recently discontinued due to fall. He is currently on aspirin. RECOMMENDATIONS: We will await the results of the CT chest angiogram. For now, we will also review the results of CT abdomen and pelvis when available. Consult GI regarding abdominal pain. For now, we would recommend ICU transfer given probable early sepsis or systemic inflammatory response syndrome. DVT and GI prophylaxis recommended. Broad-spectrum antibiotics, I think, for now is reasonable. [facility] [address] [place] [address] CONSULTATION Name: IRVIN LIZ Room #: 206-P ADM IN M.R.#: [id number] Admission: 12/14/18 ������������������ Attend Phys: Matteo Alonzo Discharge: ������������������ Date of : 42 Report #: [id number] I note that they had a recent echocardiogram which was grossly unremarkable. With elevated troponin, may need to consider cardiac consultation, we will defer to the hospitalist. Thank you for this consultation. ��������������������������������������������� <ELECTRONICALLY SIGNED> ���������������������������������������� By: Trevon Marquez MD ��������������������������������������������� 12/17/18 0700 1355 [id number] Trevon Marquez MD /nt
--- NOTE | 2018-12-17 07:24 | NUR ---
ASSESSMENT CHARTED. A&OX4, MAD HE DIDNT SLEEP WELL DURING DAY AND THAT WE KEEP CHECKING ON HIM. [facility] GIVEN CALLED X2 TO CHECK ON PT. PT ENCOURAGED TO TURN AND EXPRESS PAIN, TAKES TIME BUT BECOMES UNDERSTANDING AND ALLOWS Q2 TURNS AND PRN PAIN MEDS PER EMAR. LEFT EXTREMITY BURISED SOFT HEMATOMA FREE. ALBUMIN, D5 NS, ABX PER EMAR. IV TEAM CALLED TO PLACE ANOTHER IV ACCESS. URINARY CATH IN PLACE. UPDATED LABS CALLED TO SKIN FORMER, ORDERS GIVEN. TYPE AND SCREEN DONE, BLOOD READY UPDATED AM NURSE. WILL CONT MONITOR AND POC.
--- NOTE | 2018-12-17 09:08 | EKG ---
[place] [address] [facility] [place] [address] ELECTROCARDIOGRAM REPORT Name: IRVIN LIZ Room #: 206-P ADM IN M.R.#: [id number] ������������������ Admission: 12/14/18 ������������������ Attend Phys: Matteo Alonzo Discharge: ������������������ Date of : 44 Report #: [id number] ����������������������������������������������������������������� [id number] THIS REPORT FOR: //name// 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 GRANADOS : 1940 Requested By: Matteo Alonzo Order Number: [id number] MD: Marty Pathak Measurements Intervals [place] Rate: 122 P: [place]: QRS: 34 QRSD: 78 T: 47 QT: 329 QTc: 469 Interpretive Statements Atrial fibrillation Abnormal R-wave progression, early transition Nonspecific ST segment abnormality Compared to ECG 12/14/2018 10:41:47 Heart rate has increased ST segment abnormality is more pronounced Electronically Signed On 12-17-2018 9:08:23 CDT by Marty Pathak [email or web address] ��������������������������������������������� <ELECTRONICALLY SIGNED> ���������������������������������������� By: Marty Pathak MD, [facility] ��������������������������������������������� 12/17/18 0908 1228 1228 Marty Pathak MD, [facility] /EPI
--- NOTE | 2018-12-17 10:19 | NUR ---
met with patient who is alert and knew he was at [facility]. He is ltc at [facility] recent dc from [facility] to [facility] December 13. Patient admits with abd pain and RAT teamed yesterday. He is on 3 liters of oxygen. His brother lives in [place]. Sp with brother who is flying today to see patient. He will likely arrive here at 1800. Patient has a caregiver Arin who will be arriving soon to visit with patient. Plan to udpate [facility] and plan return once stable. Patient gave consent to sp with brother and Arin.
--- NOTE | 2018-12-17 13:33 | NUR ---
FAXED CLINICAL UPDATE TO [facility] SPOKE WITH CHEY IN ADM SHE RECEIVED UPDATE. DCP TODAY.
--- NOTE | 2018-12-17 19:40 | NUR ---
AAOX4. PLEASANT AND COOPERTIVE YET VERY FUSSY AND STATES "I JUST DONT KNOW WHAT I WANT". DIET ADVANCED TO REGULAR AND HAD A GOOD APPETITE FOR LUNCH. FAIR APPETITE FOR BREAKFAST. OSTOMY WITH LIQUID BROWN STOOL IN POUCH. EVANS TO DD WITH PINK TINGED URINE OUTPUT. HOB UP 45 DEGREES.
[2018-12-17 21:19] LABS: HEMATOCRIT 23.2 % (42.0-52.0); HEMOGLOBIN 7.9 gm/dL (14.0-18.0)
[2018-12-18 04:10] LABS: ALBUMIN 2.3 g/dL (3.4-5.0); CALCIUM 6.2 mg/dL (8.5-10.1); CREATININE 0.7 mg/dL (0.7-1.3); MAGNESIUM 1.9 mg/dL (1.8-2.4); POTASSIUM 3.6 mmol/L (3.5-5.1); TOTAL BILIRUBIN 0.7 mg/dL (<0.1-1.0); TOTAL PROTEIN 4.2 g/dL (6.4-8.2)
[2018-12-18 04:15] VITALS: BP 119/70
--- NOTE | 2018-12-18 07:55 | NUR ---
PATIENT COMPLAIN OF SORENESS IN HIS BILATERAL HIP.PAIN MEDS GIVEN.VERBALIZED A LITTLE RELIEF.TURN PATIENT Q2 HOURS AND PRN.WILL CONTINUE POC.
[2018-12-18] MEDS ORDERED: HYDROCODON-ACE1 EAC7 PO (08:03)
[2018-12-18] MEDS ORDERED: LASIX 40 MG TAB40 M2 PO (08:03)
[2018-12-18 12:19] VITALS: BP 112/66
--- NOTE | 2018-12-18 12:55 | HC ---
[facility] [place] [address] CONSULTATION Name: IRVIN LIZ Room #: 206-P ADM IN M.R.#: [id number] Admission: 12/14/18 ������������������ Attend Phys: Matteo Alonzo Discharge: ������������������ Date of : 42 Report #: [id number] THIS REPORT FOR: //name// CC: Matteo Prado DATE OF SERVICE: 12/16/2018 TYPE OF REPORT: Cardiology consultation. HISTORY OF PRESENT ILLNESS: The patient is a 78-year-old single white male who I was asked to see in the hospital today because of atrial fibrillation. The patient has an extensive and complicated past medical history. 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 He has never been . He is currently at the [facility]. Most of the history was obtained from the guardian. He has a history of permanent atrial fibrillation. He has never been cardioverted. He previously was anticoagulated because of frequent falls and he was taken off anticoagulation. He has had no history of stroke. He is legally blind. He ambulates very minimally. The patient had previous laparotomy for perforated bowel and has a colostomy in place. He has a history of multiple myeloma. The patient was recently just discharged from [facility]. He had recently fallen following a seizure. The patient was sent back to the [facility]. The patient was brought back to the Emergency Room 2 days ago complaining of abdominal pain and shortness of breath. He had had some swelling. He felt lightheaded. Because of his multiple medical problems, Cardiology consultation was requested. PAST MEDICAL HISTORY: Otherwise significant for previous eye injury and he is legally blind. He has had previous hip fracture requiring surgery, he has a history of permanent atrial fibrillation. He has a seizure disorder. He has multiple myeloma and is followed at . He has had elevated troponin in the past and medical therapy was recommended. CURRENT MEDICATIONS: At the [facility] consists of omeprazole, oxycodone, senna, aspirin, buspirone, Keppra, risperidone, divalproex and Decadron. ALLERGIES: He has no known drug allergies. FAMILY HISTORY: Noncontributory. SOCIAL HISTORY: He has never been , currently at the [facility]. No smoking or alcohol abuse. REVIEW OF SYSTEMS: No history of stroke, asthma, has a lot of indigestion. No history of kidney disease, liver disease and psychiatric illness. [facility] [address] [place] [address] CONSULTATION Name: IRVIN LIZ Room #: 206-P [facility] IN M.R.#: [id number] Admission: 12/14/18 ������������������ Attend Phys: Matteo Alonzo Discharge: ������������������ Date of : 42 Report #: [id number] PHYSICAL EXAMINATION: GENERAL: Revealed an elderly male, lying in bed. Appeared in no acute distress. VITAL SIGNS: He had a blood pressure 130/80, pulse is 80 and he is afebrile. HEENT: He was anicteric. Conjunctivae pink. Mucous members appear moist. NECK: Veins do not appear distended. CHEST: Clear to auscultation. CARDIAC: Irregular rhythm. ABDOMEN: He has colostomy in place and is soft. EXTREMITIES: He had trace edema. No dorsalis pedis pulse could be palpated. SKIN: Cool and dry. NEUROLOGICAL: He has followed commands. RADIOLOGICAL DATA: ECG showed atrial fibrillation and nonspecific ST-segment changes. His workup, he had an echocardiogram done on 12/10/2018 that showed ejection fraction 60%, biatrial enlargement, mild aortic regurgitation, aortic sclerosis and moderate pulmonary hypertension of 31 mmHg plus right atrial pressure. His workup so far, he had portable chest x-ray done last week that showed cardiomegaly, hiatal hernia, chronic interstitial lung changes. CT scan of the head was done last week that showed chronic changes and no acute abnormality. He had a CT scan of the abdomen that showed pleural effusions and anasarca. CT scan of the chest using a PE protocol showed small effusions, normal heart size and rib fracture that appeared to be old. LABORATORY DATA: Sodium 140, potassium 3.8, BUN 23 and creatinine 0.9. Lipase 721, albumin 2.0 and troponin of 0.11 and last month is 0.34. Recent cholesterol 142, triglyceride 64, HDL 66 and LDL 64. White blood cell count 13.2; hemoglobin is 7 and platelet count 178,000. IMPRESSION AND RECOMMENDATIONS: 1. Atrial fibrillation. Rate controlled despite the fact that he is on no medications and slow atrioventricular node conduction. 2. Non-myocardial infarction related minimal elevation of troponin. 3. Multiple myeloma. The patient followed at . 4. History of seizures. The patient is on Keppra. 5. Pancreatitis. 6. Edema. Suspect venous insufficiency. I would give Lasix as needed. 7. Legally blind. ��������������������������������������������� <ELECTRONICALLY SIGNED> ���������������������������������������� By: Lemuel Esquivel MD, FACC ��������������������������������������������� 12/18/18 1255 1652 0047 Lemuel Esquivel MD, FAC /nt
--- NOTE | 2018-12-18 14:18 | NUR ---
PT DISCHARGING TODAY TO [facility] FAXED DC ORDERS/SUMMARY TO FACILITY SPOKE WITH CHEY IN ADM SHE RECEIVED DC ORDERS AND ARRANGED TRANSPORT VIA WC VAN FOR [phone] FAMILY NOTIFIED BY SW. UNIT NOTIFIED AND CHART COPY PER US. PT TOURED [facility] AND SPOKE WITH ADM THAT PT WILL DC FOR SKILLED PLACEMENT AND THEM TO TRANSITION TO HOSPICE. RN TO CALL REPORT TO [phone].
[2018-12-18 15:38] VITALS: BP 112/79
--- NOTE | 2018-12-18 15:44 | NUR ---
Assumed care of pt at 0700. Pt anxious about being discharged today. c/o pain in the right hip and right knee. Prn pain meds administered. Wiley catheter to be removed per Dr. Alonzo order. On 3L O2. Pt family at [facility]. Family requests to talk Dr. Alonzo about pt discharge options. Dr Alonzo notified. Family also request for pt to discharge with long-acting morphine. notified. States morphine will be too strong for pt. Discharge planned for [facility] between [phone].
== END 2018-12-18 16:52 | DRG 438 ==
LOC: ER 09:39 → 2N 13:27 → EROBS 13:27 → 2N 17:44
PROVIDERS: Emergency Medicine; Internal Medicine Pulmonary Disease; Nurse Practitioner Acute Care; Nurse Practitioner Family; ADMIT Hospitalist
DX: K85.90 Acute pancreatitis without necrosis or infection, unspecified (principal); E43 Unspecified severe protein-calorie malnutrition; J96.01 Acute respiratory failure with hypoxia; E87.2 Acidosis; C90.00 Multiple myeloma not having achieved remission; I48.92 Unspecified atrial flutter; E27.1 Primary adrenocortical insufficiency; R65.10 Systemic inflammatory response syndrome (SIRS) of non-infectious origin without acute organ dysfunction; J90 Pleural effusion, not elsewhere classified; G40.909 Epilepsy, unspecified, not intractable, without status epilepticus; D64.9 Anemia, unspecified; D72.825 Bandemia; E88.09 Other disorders of plasma-protein metabolism, not elsewhere classified; I95.9 Hypotension, unspecified; E83.51 Hypocalcemia; I48.2 Chronic atrial fibrillation; H54.8 Legal blindness, as defined in USA; F79 Unspecified intellectual disabilities; Z66 Do not resuscitate; Z93.3 Colostomy status; Z87.81 Personal history of (healed) traumatic fracture; Z79.82 Long term (current) use of aspirin; Z79.899 Other long term (current) drug therapy; Z68.24 Body mass index [BMI] 24.0-24.9, adult
CPT/HCPCS: 10194; 27000